=== PATIENT | female | born 1960 | race Caucasian/White ===

== ENCOUNTER 2017-12-14 06:50 | Emergency (ER) | END 2017-12-14 09:25 | disposition home or self-care (01) ==

== ENCOUNTER 2018-06-21 09:54 | Emergency (ER) | END 2018-06-21 15:58 | disposition home or self-care (01) ==

== ENCOUNTER 2018-10-13 07:46 | Emergency (ER) | END 2018-10-13 09:21 | disposition home or self-care (01) ==